=== PATIENT | female | born 1950 | race Hispanic/Latino ===

== ENCOUNTER 2016-11-25 09:22 | Day surgery (SDC) | payer OTHER ==
[~2016-11-25 09:22] MED LIST: WATER FOR IRRIG STERILE IR ONE
[2016-11-25] MEDS ORDERED: NACL 0.9% 1000 ML 1,000 ML IV SCH (10:00)
[2016-11-25] MEDS ORDERED: DIPRIVAN 10 MG/ML IV ONE ×2 (11:51)
--- NOTE | 2016-11-25 11:54 | Anesthesia Day of Surgery ---
Anesthesia Day of Surgery - Day of Surgery Patient Examined: Yes Patient H&P Reviewed: Yes Patient is NPO: Yes
--- NOTE | 2016-11-25 11:54 | Anesthesia Consultation ---
Anesthesia Consult and Med Hx Date of service: 11/25/16 - Airway Anesthetic Teeth Evaluation: Poor ROM Head & Neck: Adequate Mental/Hyoid Distance: Adequate Mallampati Class: Class II Intubation Access Assessment: Probably Good - Pulmonary Exam CTA: Yes - Cardiac Exam Cardiac Exam: RRR - Pre-Operative Health Status ASA Pre-Surgery Classification: ASA2 Proposed Anesthetic Plan: MAC - Pulmonary Hx Smoking: Yes (quit 6 months ago) - Cardiovascular System Hx Hypertension: Yes (undiagnosed) - Other Systems Hx Obesity: Yes
--- NOTE | 2016-11-25 12:34 | Procedure Note ---
Date of procedure: 11/25/16 Pre-op diagnosis: 1) RUQ pain 2) Strong FH of gastric ca Post-op diagnosis: same Procedure: EGD Description of procedure: Pt was placed in a left lateral decubitus position. Bite block was placed between her incisors. She was sedated IV by anesthesia. The scope was passed into her oropharynx and the esophagus intubated under direct vision. The esophagus, stomach and 1st and 2nd portions of the duodenum were carefully examined. This included a retroflexed view of the fundus. No abnormalities were noted. Insufflated air was aspirated from the stomach and the scope withdrawn. Pt tolerated the procedure well. She was taken to PACU in stable condition. Findings: Normal EGD Anesthesia: MAC Surgeon: VANE MCPHERSON Estimated blood loss: none Pathology: none Condition: stable Disposition: PACU
[2016-11-25 12:42] VITALS: BP 121/74
== END 2016-11-25 09:23 | disposition home or self-care (01) ==
LOC: GIO 09:22
PROVIDERS: ATTEND Surgery
DX: R10.11 Right upper quadrant pain (principal); I10 Essential (primary) hypertension; E66.9 Obesity, unspecified; Z68.41 Body mass index [BMI] 40.0-44.9, adult; Z87.891 Personal history of nicotine dependence; Z88.0 Allergy status to penicillin; Z88.5 Allergy status to narcotic agent; Z88.1 Allergy status to other antibiotic agents; Z80.0 Family history of malignant neoplasm of digestive organs
CPT/HCPCS: 43235; J2704; J7030

== ENCOUNTER 2016-12-05 11:01 | Observation (INO) | payer OTHER ==
[2016-12-05] MEDS ORDERED: HEPARIN SUB-Q NR (12:30)
--- NOTE | 2016-12-05 13:05 | Anesthesia Day of Surgery ---
Anesthesia Day of Surgery - Day of Surgery Patient Examined: Yes Patient H&P Reviewed: Yes Patient is NPO: Yes
--- NOTE | 2016-12-05 13:05 | Anesthesia Consultation ---
Anesthesia Consult and Med Hx Date of service: 12/05/16 - Airway Anesthetic Teeth Evaluation: Edentulous ROM Head & Neck: Adequate Mental/Hyoid Distance: Adequate Mallampati Class: Class II Intubation Access Assessment: Probably Good - Pulmonary Exam CTA: Yes - Cardiac Exam Cardiac Exam: RRR - Pre-Operative Health Status ASA Pre-Surgery Classification: ASA2 Proposed Anesthetic Plan: General - Pulmonary Hx Smoking: Yes (STOPPED 05/2016,2PPD X 50 YRS) Hx Sleep Apnea: No (SHEREEN PRE SCREEN HIGH RISK) - Cardiovascular System Hx Hypertension: No - Hematic Hx Anemia: No (HX HIGH RBC COUNT) - Other Systems Hx Cancer: No Hx Obesity: Yes
[2016-12-05] MEDS ORDERED: LEVAQUIN 500MG/100ML 500 MG/100 ML BAG IV NR (13:15)
[2016-12-05] MEDS ORDERED: MARCAINE-EPI/PF 0.25%-1:200,000 INFILTRATI ONE ×2 (13:45→14:52)
[2016-12-05] MEDS ORDERED: VERSED IV NR (14:00)
[2016-12-05] MEDS ORDERED: PEPCID PO NR (14:00)
[2016-12-05] MEDS ORDERED: NACL 0.9% 1000 ML 1,000 ML IV SCH (14:00)
[2016-12-05] MEDS ORDERED: ZEMURON IV ONE (14:13)
[2016-12-05] MEDS ORDERED: DILAUDID ONE ×2 (14:14→16:48)
[2016-12-05] MEDS ORDERED: XYLOCAINE MPF 2% ONE (14:14)
[2016-12-05] MEDS ORDERED: DIPRIVAN 10 MG/ML IV ONE (14:14)
[2016-12-05] MEDS ORDERED: ePHEDrine SULFATE ONE (14:39)
[2016-12-05] MEDS ORDERED: NACL 0.9% IR ONE ×2 (14:52)
[2016-12-05] MEDS ORDERED: DECADRON ONE (14:54)
[2016-12-05] MEDS ORDERED: NEOSTIGMINE ONE (14:55)
[2016-12-05] MEDS ORDERED: ZOFRAN ONE (14:55)
[2016-12-05] MEDS ORDERED: ROBINUL ONE (14:55)
[2016-12-05] MEDS ORDERED: NACL 0.9% 1000 ML 1,000 ML ONE (16:01)
--- NOTE | 2016-12-05 16:15 | Post Operative Note ---
Pre-op diagnosis: chronic cholecystitis Post-op diagnosis: other (acute on chronic cholecystitis) Findings: Acutely inflamed gallbladder with dense omental adhesions Procedure: Lap ryanne Anesthesia: DONOVANA Surgeon: VANE MCPHERSON Estimated blood loss: other (200 ml) Pathology: list (gallbladder) Specimen disposition: to lab Condition: stable Disposition: PACU
[2016-12-05] MEDS ORDERED: ZOFRAN IV PRN ×2 (16:16→16:49)
[2016-12-05] MEDS: DILAUDID IV PRN ×2 (16:45→16:55)
[2016-12-05] MEDS: MORPHINE IV PRN (21:45)
[2016-12-05] MEDS: celeXA PO SCH (21:45)
[2016-12-05] MEDS: NEURONTIN PO SCH (22:05)
[2016-12-05] MEDS: KCL 10 MEQ in NACL 0.9% 1000 ML 1,000 ML IV SCH (23:36)
[2016-12-06 06:40] LABS: Basophils % (Auto) 0.4 % (0.0-1.8); Hematocrit 38.9 % (30.3-42.9); Hemoglobin 12.9 gm/dl (10.1-14.3); Mean Corpuscular HGB Conc 33 % (30-34); Mean Corpuscular Hemoglobin 31 pg (28-32); Mean Corpuscular Volume 93 fl (79-97); Platelet Count 252 K/mm3 (140-440); Red Cell Distribution Width 13.7 % (13.2-15.2); White Blood Count 10.5 K/mm3 (4.5-11.0)
[2016-12-06 07:01] LABS: Alanine Aminotransferase 64 units/L (7-56); Albumin 3.5 g/dL (3.9-5); Albumin/Globulin Ratio 1.3 %; Alkaline Phosphatase 84 units/L (35-129); Anion Gap 17 mmol/L; BUN/Creatinine Ratio 21.42; Blood Urea Nitrogen 15 mg/dL (7-17); Calcium 7.9 mg/dL (8.4-10.2); Carbon Dioxide 23 mmol/L (22-30); Chloride 105.9 mmol/L (98-107); Glucose 119 mg/dL (65-100); Potassium 4.6 mmol/L (3.6-5.0); Sodium 141 mmol/L (137-145); Total Protein 6.3 g/dL (6.3-8.2)
[2016-12-06 08:13] VITALS: BP 96/59
[2016-12-06] MEDS: MORPHINE IV PRN (08:13)
--- NOTE | 2016-12-06 08:56 | Progress Note ---
Subjective Date of service: 12/06/16 Interval history: POD1, pt is satifactory with anesthesia service, ambulate and urintate, pain is 4/10. F/U with doctor consultation this PM Objective - Constitutional Vitals: Vital Signs - 12hr 12/05/16 12/06/16 12/06/16 21:26 00:09 06:04 Temperature 97.3 F L 98.2 F 97.6 F Pulse Rate 76 77 67 Respiratory 20 20 18 Rate Blood Pressure 91/54 111/63 121/65 O2 Sat by Pulse 92 92 100 Oximetry 12/06/16 08:00 Temperature 98.2 F Pulse Rate 62 Respiratory 18 Rate Blood Pressure 96/59 O2 Sat by Pulse 93 Oximetry - Labs CBC & Chem 7: 12/06/16 06:23 12/06/16 06:23 Labs: Abnormal lab results 12/05/16 12/06/16 12/06/16 Range/Units 16:35 06:23 06:23 Lymph % (Auto) 9.8 L (13.4-35.0) % Lymph # 1.0 L (1.2-5.4) K/mm3 Seg Neutrophils % 85.3 H (40.0-70.0) % Seg Neutrophils # 9.0 H (1.8-7.7) K/mm3 Glucose 119 H (65-100) mg/dL POC Glucose 126 H (70-105) Calcium 7.9 L (8.4-10.2) mg/dL AST 60 H (5-40) units/L ALT 64 H (7-56) units/L Albumin 3.5 L (3.9-5) g/dL
[2016-12-06] MEDS ORDERED: LEVAQUIN 500MG/100ML 500 MG/100 ML BAG IV SCH (10:00)
[2016-12-06] MEDS: NEURONTIN PO SCH (10:14)
[2016-12-06] MEDS: celeXA PO SCH ×2 (10:14→10:22)
[2016-12-06] MEDS: KCL 10 MEQ in NACL 0.9% 1000 ML 1,000 ML IV SCH (10:14)
--- NOTE | 2016-12-06 15:00 | Discharge Summary ---
Providers - Providers Date of Admission: 12/05/16 16:16 Date of discharge: 12/06/16 Attending physician: VANE MCPHERSON none Primary care physician: MARIPOSA JON Hospitalization Reason for admission: Chronic cholecystitis Condition: Good Procedures: Lap ryanne on 12/05/2016 Hospital course: unremarkable Disposition: DC-01 TO HOME OR SELFCARE - Discharge Diagnoses (1) Acute cholecystitis Status: Acute Core Measure Documentation - Palliative Care Palliative Care/ Comfort Measures: Not Applicable - Core Measures Any of the following diagnoses?: none Exam - Constitutional Vitals: Temp Pulse Resp BP Pulse Ox 98.2 F 62 18 96/59 93 12/06/16 08:00 12/06/16 08:00 12/06/16 08:00 12/06/16 08:00 12/06/16 08:00 Plan Follow up with: MARIPOSA JON MD [Primary Care Provider] - 7 Days
--- NOTE | 2016-12-09 10:48 | Operative Report ---
Operative Report Operative Report: Date of operation: 12/05/2016 Preoperative diagnosis: Chronic cholecystitis Postoperative diagnosis: Acute on chronic cholecystitis Operation: Laparoscopic cholecystectomy Surgeon: Tuan Bess MD Findings: Acutely inflamed gallbladder with dense omental adhesions Anesthesia: Gen. endotracheal EBL: 200 mL's There were no complications or drains. Gram stain, aerobic and anaerobic cultures of the fluid within the gallbladder were obtained. Specimens consisted of the gallbladder and gallstones. Description of procedure: Patient was placed supine on the operating room table. After adequate general anesthesia was obtained, her abdomen was prepped and draped in the usual sterile manner. Proposed trocar sites were infiltrated with a total of 8 ml of 0.25% Marcaine with epinephrine. A small infraumbilical incision was then made, linea alba incised and the peritoneal cavity carefully entered. A blunt port was inserted into the peritoneal cavity and pneumoperitoneum established. 10 mm subxiphoid, 5 mm right upper quadrant and 5 mm right lateral abdominal Surgiports were inserted into the peritoneal cavity under direct vision without incident. Patient was placed in a reverse Trendelenburg position with the right side rotated upwards. Fundus of the gallbladder was noted to be acutely inflamed but could be grasped. This revealed a dense omental adhesions to the gallbladder which were carefully lysed with blunt and electrocautery dissection. The cystic duct and artery as well as the critical view of safety were obtained. The cystic duct was milked toward the gallbladder and the cystic duct doubly clipped and divided. The cystic artery was doubly clipped and divided. Gallbladder was dissected off of its hepatic fossa using electrocautery. He was then placed in an Endobag and the Endobag and gallbladder removed via the patient's infraumbilical fascial defect. The Bhakta port was replaced and pneumoperitoneum reestablished. Irrigation fluid used during the procedure was aspirated from Morison's pouch and the subhepatic space. Areas of dissection were checked for hemostasis which was excellent. Upper abdominal ports were then removed and there was no bleeding from the port entry sites under low pneumoperitoneal pressure. The infraumbilical fascial defect was closed with 2 interrupted sutures of 0 Vicryl. Skin incisions were closed with monica. Sterile absorbent dressings were applied to the incisions. Patient tolerated the procedure well. She was extubated in the operating room and was taken to the PACU in stable condition.
== END 2016-12-06 16:30 | disposition home or self-care (01) ==
LOC: OR 11:01 → 2B-SURG 16:16
PROVIDERS: ADMIT Surgery; ATTEND Surgery
DX: K81.1 Chronic cholecystitis (principal); K81.0 Acute cholecystitis; E66.9 Obesity, unspecified; Z87.891 Personal history of nicotine dependence
CPT/HCPCS: 36415; 47562; 80053; 82962; 85025; 87075; 87116; 88304; 96365; 96372; 96375; 96376; A4217; G0378; J1100; J1170; J1644; J1956; J2250; J2270; J2405; J2704; J2710; J3480; J7030

== ENCOUNTER 2016-12-25 10:55 | Outpatient (CLI) | payer OTHER ==
--- NOTE | 2016-12-25 12:15 | XRay Report ---
LEFT SHOULDER RADIOGRAPHS INDICATION: Shoulder joint pain. COMPARISON: None similar at this institution. FINDINGS: Frontal and Y views of the left shoulder, 3 projections demonstrate normal humeral head contour, well positioned against the glenoid. Intact acromioclavicular joint with mild degenerative changes. Preserved scapular contour. Normal visualized soft tissues, left ribs and lung. Possible osteopenia. CONCLUSION: No acute left shoulder radiographic abnormality, as described. Thank you for the opportunity to participate in this patient's care.
== END 2016-12-25 10:56 | disposition home or self-care (01) ==
LOC: XRAY 10:55
PROVIDERS: ATTEND Family Medicine
DX: M19.012 Primary osteoarthritis, left shoulder (principal); F41.9 Anxiety disorder, unspecified; D64.9 Anemia, unspecified; Z87.891 Personal history of nicotine dependence

== ENCOUNTER 2017-02-19 10:01 | Day surgery (SDC) | payer OTHER ==
[~2017-02-19 10:01] MED LIST changes: -WATER FOR IRRIG STERILE IR ONE; +XYLOCAINE MPF 2% ONE
[2017-02-19] MEDS ORDERED: NACL 0.9% 1000 ML 1,000 ML IV SCH (11:00)
[2017-02-19] MEDS ORDERED: DIPRIVAN 10 MG/ML IV ONE ×3 (12:40→13:04)
--- NOTE | 2017-02-19 12:41 | Anesthesia Consultation ---
Anesthesia Consult and Med Hx Date of service: 02/19/17 - Airway Anesthetic Teeth Evaluation: Poor, Dentures ROM Head & Neck: Adequate Mental/Hyoid Distance: Adequate Mallampati Class: Class II Intubation Access Assessment: Probably Good - Pulmonary Exam CTA: Yes - Cardiac Exam Cardiac Exam: RRR - Pre-Operative Health Status ASA Pre-Surgery Classification: ASA3 Proposed Anesthetic Plan: MAC - Pulmonary Hx Smoking: Yes ([id number] yrs quit in 05/31) Hx Respiratory Symptoms: Yes (hx bronchitis, last occurence 3 yrs ago) Hx Sleep Apnea: No (SHEREEN PRE SCREEN HIGH RISK) - Cardiovascular System Hx Hypertension: No Hx Heart Attack/AMI: No - Central Nervous System Hx Psychiatric Problems: Yes (anxiety) - Gastrointestinal Hx Gastroesophageal Reflux Disease: Yes - Hematic Hx Anemia: No (HX HIGH RBC COUNT) - Other Systems Hx Cancer: No Hx Obesity: Yes - Additional Comments Anesthesia Medical History Comments: NAC
--- NOTE | 2017-02-19 12:41 | Anesthesia Day of Surgery ---
Anesthesia Day of Surgery - Day of Surgery Patient Examined: Yes Patient H&P Reviewed: Yes Patient is NPO: Yes
[2017-02-19] MEDS ORDERED: WATER FOR IRRIG STERILE IR ONE (13:17)
--- NOTE | 2017-02-19 14:04 | Post Anesthesia Evaluation ---
- Post Anesthesia Evaluation Patient Participated: Yes Airway Patent: Yes Stable Respiratory Function: Yes Temp > 96.8F: Yes Pain Manageable: Yes Adequeate Hydration: Yes Anesthesia Complications: No
--- NOTE | 2017-02-19 14:16 | Procedure Note ---
Date of procedure: 02/19/17 Pre-op diagnosis: Heme + stool Post-op diagnosis: other (Mild diverticular disease of the transverse, descending and sigmoid colon) Procedure: Colonoscopy to cecum Description of procedure: Pt was placed in a left lateral position. She was sedated intravenously by anesthesia. The colonoscope was inserted into the pt' s rectum. It was advanced retrograde while directly visualizing the lumen. The prep was adequate. Once the cecum was identified, the colonoscope was slowly withdrawn with careful circumferential visualization of the bowel wall. The only significant finding was the diverticular disease as is noted above. Retroflexed view of the distal rectum was also performed and was also negative. Insuflatted air was aspirated. Pt tolerated the procedure well. She was recovered in the GI suite. Anesthesia: MAC Surgeon: VANE MCPHERSON Estimated blood loss: none Pathology: none Condition: stable Disposition: PACU
[2017-02-19 14:27] VITALS: BP 157/81
== END 2017-02-19 10:02 | disposition home or self-care (01) ==
LOC: GIO 10:01
PROVIDERS: ATTEND Surgery
DX: R19.5 Other fecal abnormalities (principal); K57.30 Diverticulosis of large intestine without perforation or abscess without bleeding; K21.9 Gastro-esophageal reflux disease without esophagitis; E66.01 Morbid (severe) obesity due to excess calories; F41.9 Anxiety disorder, unspecified; Z68.41 Body mass index [BMI] 40.0-44.9, adult; Z97.2 Presence of dental prosthetic device (complete) (partial); Z87.891 Personal history of nicotine dependence; Z88.0 Allergy status to penicillin; Z88.1 Allergy status to other antibiotic agents
CPT/HCPCS: 45378; J2704; J7030

== ENCOUNTER 2017-08-13 08:28 | Day surgery (SDC) | payer MEDICARE, OTHER ==
[~2017-08-13 08:28] MED LIST changes: +LACTATED RINGERS 1,000 ML IV SCH; +VERSED IV NR; -XYLOCAINE MPF 2% ONE
[2017-08-13] MEDS ORDERED: XYLOCAINE MPF 2% ONE (08:53)
[2017-08-13] MEDS ORDERED: SUBLIMAZE ONE ×2 (08:53→11:39)
[2017-08-13] MEDS ORDERED: DIPRIVAN 10 MG/ML IV ONE (08:53)
[2017-08-13] MEDS ORDERED: NACL BACTERIOSTATIC INFILTRATI ONE (09:16)
[2017-08-13] MEDS ORDERED: DILAUDID IV PRN (09:42)
[2017-08-13] MEDS ORDERED: ZOFRAN IV PRN (09:42)
--- NOTE | 2017-08-13 09:57 | Anesthesia Day of Surgery ---
Anesthesia Day of Surgery - Day of Surgery Patient Examined: Yes Patient H&P Reviewed: Yes Patient is NPO: Yes
--- NOTE | 2017-08-13 09:57 | Anesthesia Consultation ---
Anesthesia Consult and Med Hx Date of service: 08/13/17 - Airway Anesthetic Teeth Evaluation: Poor ROM Head & Neck: Adequate Mental/Hyoid Distance: Adequate Mallampati Class: Class III Intubation Access Assessment: Possibly Difficult - Pulmonary Exam CTA: Yes - Cardiac Exam Cardiac Exam: RRR - Pre-Operative Health Status ASA Pre-Surgery Classification: ASA3 Proposed Anesthetic Plan: General (GA with LMA) - Pulmonary Hx Smoking: Yes ([id number] yrs quit in 05/31) Hx Respiratory Symptoms: Yes (hx bronchitis, last occurence 3 yrs ago) - Central Nervous System Hx Back Pain: Yes (Fusion L4-L5, now showing degeneration) Hx Psychiatric Problems: Yes - Gastrointestinal Hx Gastroesophageal Reflux Disease: Yes - Other Systems Hx Cancer: No Hx Obesity: Yes
--- NOTE | 2017-08-13 10:16 | Short Stay Summary ---
Short Stay Documentation Date of service: 08/13/17 Narrative H&P: Patient is a 67-year-old female who presented with postmenopausal bleeding to the office. An endometrial biopsy at that time revealed thickened endometrium and possible endometrial polyps. The recommendation was for dilation and curettage. - History H&P: obtained from office Past Medical History: diabetes, hypertension, hyperlipidemia, other Past Surgical History: No surgical history Social history: - Allergies and Medications Current Medications: Allergies metronidazole [From Flagyl] Allergy (Verified 08/08/17 10:37) Diarrhea Penicillins Allergy (Verified 08/08/17 10:37) Swelling lidocaine Adverse Reaction (Verified 08/08/17 10:37) Numbness that doesn't go away Home Medications Medication Instructions Recorded Confirmed Last Taken Type ALPRAZolam 0.5 mg PO DAILY PRN 11/25/16 08/13/17 08/13/17 History Citalopram 40 mg PO DAILY 11/25/16 08/13/17 08/12/17 History Ventolin HFA 2 puff INHALATION PRN PRN 11/25/16 08/13/17 08/13/17 History Loratadine 10 mg PO DAILY 02/19/17 08/13/17 08/12/17 History Omeprazole 40 mg PO DAILY 02/19/17 08/13/17 08/12/17 History AtorvaSTATin [Lipitor] 20 mg PO QHS 08/08/17 08/13/17 08/13/17 History Azelastine 0.1% (Nf) [Astelin (Nf)] 1 spray IH BID 08/08/17 08/13/17 08/12/[address] [Voltaren Dr] 75 mg PO DAILY 08/08/17 08/13/17 08/10/17 History Mirabegron [Myrbetriq] 1 tab PO DAILY 08/08/17 08/13/17 08/12/17 History Montelukast [Singulair] 10 mg PO QPM 08/08/17 08/13/17 08/12/17 History Pregabalin [Lyrica] 100 mg PO BID 08/08/17 08/13/17 08/12/17 History metFORMIN [Glucophage] 500 mg PO QDAY 08/08/17 08/13/17 08/12/17 History Estrogen,Con/M-Progest Acet 500 mg 08/13/17 08/12/17 History [Prempro 0.3 mg-1.5 mg Tablet] Active Medications Hydromorphone HCl (Dilaudid) 0.5 mg IV Q10MIN PRN PRN Reason: Pain , Severe (7-10) Stop: 08/13/17 13:00 Lactated Ringer's (Lactated Ringers) 1,000 mls @ 100 mls/hr IV DIRECT BABITA Midazolam HCl (Versed) 2 mg IV PREOP NR Stop: 08/13/17 23:59 Ondansetron HCl (Zofran) 4 mg IV ONCE PRN PRN Reason: Nausea And Vomiting Stop: 08/13/17 12:00 - Physical exam General appearance: no acute distress HEENT: Atraumatic Lungs: Clear to auscultation, Normal air movement Breasts: deferred Heart: Regular rate, Normal S1, Normal S2 Gastrointestinal: normal, normoactive bowel sounds Female Genitourinary: normal, other (atrophic) Rectal Exam: deferred Extremities: no ischemia, No edema - Brief post op/procedure progress note Date of procedure: 08/13/17 Pre-op diagnosis: Postmenopausal bleeding Post-op diagnosis: same Procedure: D&C Anesthesia: MAC Findings: NOrmal female genitalia, Uterus sounded to 7cm Surgeon: ROSEMARY WERNER Estimated blood loss: minimal Pathology: list (endometrial currettings) Specimen disposition: to lab Condition: stable - Hospital course Hospital course: unremarkable - Disposition Condition at discharge: Good Disposition: DC-01 TO HOME OR SELFCARE Short Stay Discharge Plan Activity: advance as tolerated Weight Bearing Status: Weight Bear as Tolerated Diet: regular Follow up with: ROSEMARY WERNER MD [Staff Physician] - 14 Days Prescriptions: Ibuprofen 600 mg PO Q6H PRN #40 tablet PRN Reason: Pain
[2017-08-13] MEDS ORDERED: SILVER NITRATE TP ONE (10:23)
[2017-08-13] MEDS ORDERED: METHERGINE IM ONE (10:24)
[2017-08-13] MEDS ORDERED: ZOFRAN ONE (10:55)
--- NOTE | 2017-08-13 11:19 | Operative Report ---
Operative Report Operative Report: Preoperative diagnoses: Postmenopausal bleeding, endometrial polyps Postoperative diagnosis: Same Procedure: D and C Surgeon: Dulce Singh M.D. Anesthesia: MAC EBL: Minimal Urine output: 100 mL clear Complications: None Specimens: Endometrial curetting Procedure: Patient was taken to the OR with IV running and in place. She will probably identified as herself. She was given adequate anesthesia. She was then placed in the dorsal lithotomy position and prepped and draped in normal sterile fashion. Attention was turned to the patient's vagina. Her bladder was then drained of approximately 100 mL of clear yellow urine. A bivalve speculum was placed the patient's vagina. Cervix was visualized and grasped with a single-tooth tenaculum. The cervix was then gently dilated up to approximately 29 mm. Following this, a small banjo curet was introduced into the uterus to perform a curettage until there was a gritty texture noted in all 4 quadrants of the uterus. There was excellent hemostasis noted at the end of this portion of the procedure. At this point all instruments were removed from the patient's vagina. She was then awakened and taken to recovery in stable condition. She tolerated the procedure well
[2017-08-13] MEDS ORDERED: TORADOL ONE (11:37)
[2017-08-13] MEDS ORDERED: TORADOL IV NR (11:41)
--- NOTE | 2017-08-13 11:41 | Post Anesthesia Evaluation ---
- Post Anesthesia Evaluation Patient Participated: Yes Airway Patent: Yes Stable Respiratory Function: Yes Nausea/Vomiting: No Temp > 96.8F: Yes Pain Manageable: Yes Adequeate Hydration: Yes Anesthesia Complications: No
[2017-08-13] MEDS ORDERED: SUBLIMAZE IV NR ×2 (12:00)
[2017-08-13 13:39] VITALS: BP 115/72
== END 2017-08-13 13:20 | disposition home or self-care (01) ==
LOC: OR 08:28
PROVIDERS: ATTEND Obstetrics & Gynecology
DX: N95.0 Postmenopausal bleeding (principal); K21.9 Gastro-esophageal reflux disease without esophagitis; E66.9 Obesity, unspecified; E78.00 Pure hypercholesterolemia, unspecified; E11.9 Type 2 diabetes mellitus without complications; F41.9 Anxiety disorder, unspecified; F32.9 Major depressive disorder, single episode, unspecified; Z98.890 Other specified postprocedural states; Z88.0 Allergy status to penicillin; Z88.8 Allergy status to other drugs, medicaments and biological substances; Z87.891 Personal history of nicotine dependence
CPT/HCPCS: 58120; 82962; 88305; J1885; J2250; J2405; J2704; J3010; J7120; J2210